=== PATIENT | male | born 1975 | race Caucasian/White ===

== ENCOUNTER 2020-05-23 16:29 | Emergency (ER) | payer SELFPAY ==
[2020-05-23 16:40] VITALS: BP 143/70; PULSE 89; TEMP 98.2; BMI 23.4
[2020-05-23] MEDS ORDERED: IBUPROFEN 600 MG TABLET (FP) PO ONE (17:36)
[2020-05-23 18:44] LABS: BASO % 0.9 % (0-2.0); EOS % 2.3 % (0-4.5); HEMATOCRIT 49.6 % (35.4-49); HEMOGLOBIN 16.2 GM/dL (11.7-16.9); LYMPH % 23.7 % (8-40); MCH 30.2 pg (25.7-33.7); MCHC 32.7 g/dl (32.0-35.9); MEAN CELL VOLUME 92.4 fl (80-96); MEAN PLT VOLUME 8.8 fl (7.5-11.1); MONO % 9.3 % (3.8-10.2); NEUT % 63.8 % (42.8-82.8); PLATELET COUNT 233 K/MM3 (134-434); RBC 5.37 M/mm3 (4.00-5.60); RDW 12.6 % (11.9-15.9); WHITE BLOOD COUNT 6.6 K/mm3 (4.0-10.0)
[2020-05-23 18:55] LABS: POTASSIUM 4.4 mmol/L (3.5-5.1)
[2020-05-23 18:59] LABS: ALBUMIN 4.4 g/dl (3.4-5.0); BLOOD UREA NITROGEN 9.5 mg/dL (7-18); CALCIUM 9.7 mg/dL (8.5-10.1)
[2020-05-23 19:04] LABS: BILIRUBIN,TOTAL 0.7 mg/dL (0.2-1)
== END 2020-05-23 19:50 | disposition home or self-care (01) ==
LOC: JERFT 16:29
DX: R25.2 Cramp and spasm (principal)
CPT/HCPCS: 36415; 80053; 85025; 99284-25

== ENCOUNTER 2023-04-24 02:48 | Emergency (ER) | payer OTHER ==
[2023-04-24 02:59] VITALS: BMI 23.7
[2023-04-24] MEDS ORDERED: LIDOCAINE 5% TOPICAL PATCH TP ONE (04:19)
[2023-04-24] MEDS ORDERED: ACETAMINOPHEN 500 MG TABLET (FP) PO ONE (04:19)
[2023-04-24] MEDS ORDERED: ACETAMINOPHEN 325 MG TABLET (FP) ONE (04:31)
[2023-04-24] MEDS ORDERED: LIDOCAINE 4% PATCH TP ONE (04:32)
[2023-04-24 05:25] LABS: BASO % 0.9 % (0-2.0); EOS % 3.3 % (0-4.5); HEMATOCRIT 45.8 % (35.4-49); HEMOGLOBIN 15.1 GM/dL (11.7-16.9); MCH 30.3 pg (25.7-33.7); MCHC 32.9 g/dl (32.0-35.9); MEAN PLT VOLUME 7.9 fl (7.5-11.1); MONO % 8.9 % (3.8-10.2); NEUT % 55.9 % (42.8-82.8); PLATELET COUNT 222 10^3/uL (134-434); RBC 4.98 M/mm3 (4.00-5.60); RDW 12.9 % (11.9-15.9); WHITE BLOOD COUNT 7.4 K/mm3 (4.0-10.0)
[2023-04-24 05:38] LABS: POTASSIUM 4.8 mmol/L (3.5-5.1)
[2023-04-24 05:41] LABS: ALBUMIN 4.4 g/dl (3.4-5.0); BLOOD UREA NITROGEN 12.7 mg/dL (7-18)
[2023-04-24 05:44] LABS: CREATININE 1.1 mg/dL (0.55-1.3)
[2023-04-24 05:45] LABS: BILIRUBIN,TOTAL 0.6 mg/dL (0.2-1); TOT PROT 8.3 g/dl (6.4-8.2)
[2023-04-24 06:59] VITALS: BP 126/78; PULSE 61; RESP 18; TEMP 98.2
[2023-04-24] MEDS ORDERED: LIDOCAINE PATCH REMOVAL MC ONE (16:00)
== END 2023-04-24 08:22 | disposition home or self-care (01) ==
LOC: JER 02:48
DX: M54.6 Pain in thoracic spine (principal); M25.512 Pain in left shoulder; R42 Dizziness and giddiness; S29.012A Strain of muscle and tendon of back wall of thorax, initial encounter; V43.52XA Car driver injured in collision with other type car in traffic accident, initial encounter; Y92.410 Unspecified street and highway as the place of occurrence of the external cause
CPT/HCPCS: 36415; 70450-TC; 71250-TC; 72125-TC; 73030-TC-LT-FY; 80053; 84484; 85025; 93005; 93010; 99285-25